=== PATIENT | male | born 1960 | race Caucasian/White ===

== ENCOUNTER 2021-10-15 15:17 | Inpatient (IN) | payer OTHER ==
[~2021-10-15] VITALS: Ht 167.6 cm; Wt 59.9 kg
[~2021-10-15 15:17] MED LIST: Bactrim Ds Tab1 EACH PO; CEPH500 PO; Cleocin HCl150 MG PO; Cleocin HCl300 MG PO; Norco 5-325 Ta1 EACH PO; OXYACE5T PO; SULTRIDS PO; WELLBUTRIN
[2021-10-15 18:56] LABS: BASOPHILS ABSOLUTE AUTO 0.08 K/mm3 (0.00-0.23); BASOPHILS PERCENT AUTO 1 % (0-2); EOSINOPHILS ABSOLUTE AUTO 0.18 K/mm3 (0.00-0.68); EOSINOPHILS PERCENT AUTO 2 % (0-6); Hematocrit 39.8 % (37.0-53.0); Hemoglobin 14.5 g/dL (13.5-17.5); IMMATURE GRAN ABSOLUTE AUTO 0.06 K/mm3 (0.00-0.10); IMMATURE GRAN PERCENT AUTO 1 % (0-1); LYMPHOCYTES PERCENT AUTO 24 % (21-46); MONOCYTES PERCENT AUTO 12 % (4-13); Mean Corpuscular HGB 31.9 pg (26.0-34.0); Mean Corpuscular HGB Conc 36.4 g/dL (31.5-36.5); Mean Corpuscular Volume 88 fL (80-100); Mean Platelet Volume 8.5 fL (9.1-12.4); NEUTROPHILS ABSOLUTE AUTO 5.11 K/mm3 (1.96-9.15); NEUTROPHILS PERCENT AUTO 61 % (41-73); Platelet Count 366 K/mm3 (150-400); RDW Standard Deviation 44.4 fL (35.1-46.3); Red Blood Cell Count 4.55 M/mm3 (4.30-5.90); White Blood Cell Count 8.43 K/mm3 (4.00-11.30)
[2021-10-15 19:29] LABS: Alanine Aminotransfer (ALT/SGP 47 U/L (12-78); Albumin/Globulin Ratio 0.7 (0.8-1.8); Alk Phos 110 U/L (50-136); Anion Gap 5 mmol/L (6-16); Aspartate Aminotrans (AST/SGOT 34 U/L (12-37); Bilirubin, Total 0.4 mg/dL (0.1-1.0); Blood Urea Nitrogen 15 mg/dL (8-24); Bun/Creatinine Ratio 22.3 (12.0-20.0); CO2, Blood 26 mmol/L (21-32); Calcium, Blood 8.7 mg/dL (8.5-10.1); Chloride, Blood 104 mmol/L (98-108); Creatinine, Blood 0.67 mg/dL (0.60-1.20); Globulin, Blood 4.5 g/dL (2.2-4.0); Glomerular Filtration Rate >60 (60-); Glucose, Blood 101 mg/dL (70-99); Potassium, Blood 3.7 mmol/L (3.5-5.5); Sodium, Blood 135 mmol/L (136-145); Total Protein, Blood 7.5 g/dL (6.4-8.2)
[2021-10-15 20:00] LABS: Influenza A, PCR NEGATIVE (NEGATIVE); Influenza B, PCR NEGATIVE (NEGATIVE); Resp Syncytial Virus, PCR NEGATIVE (NEGATIVE); SARS-Cov-2 (COVID-19) PCR, MMC NEGATIVE (NEGATIVE)
[2021-10-16 06:00] LABS: BASOPHILS ABSOLUTE AUTO 0.08 K/mm3 (0.00-0.23); BASOPHILS PERCENT AUTO 1 % (0-2); EOSINOPHILS ABSOLUTE AUTO 0.23 K/mm3 (0.00-0.68); EOSINOPHILS PERCENT AUTO 3 % (0-6); Hematocrit 40.6 % (37.0-53.0); Hemoglobin 14.4 g/dL (13.5-17.5); IMMATURE GRAN ABSOLUTE AUTO 0.05 K/mm3 (0.00-0.10); IMMATURE GRAN PERCENT AUTO 1 % (0-1); LYMPHOCYTES ABSOLUTE AUTO 1.94 K/mm3 (0.84-5.20); LYMPHOCYTES PERCENT AUTO 24 % (21-46); MONOCYTES ABSOLUTE AUTO 0.86 K/mm3 (0.16-1.47); MONOCYTES PERCENT AUTO 11 % (4-13); Mean Corpuscular HGB 31.9 pg (26.0-34.0); Mean Corpuscular HGB Conc 35.5 g/dL (31.5-36.5); Mean Corpuscular Volume 90 fL (80-100); Mean Platelet Volume 8.7 fL (9.1-12.4); NEUTROPHILS ABSOLUTE AUTO 5.05 K/mm3 (1.96-9.15); NEUTROPHILS PERCENT AUTO 62 % (41-73); Platelet Count 363 K/mm3 (150-400); RDW Coefficient Variation 14.1 % (11.7-14.2); RDW Standard Deviation 45.8 fL (35.1-46.3); Red Blood Cell Count 4.52 M/mm3 (4.30-5.90); White Blood Cell Count 8.21 K/mm3 (4.00-11.30)
[2021-10-16 06:37] LABS: Alanine Aminotransfer (ALT/SGP 48 U/L (12-78); Albumin, Blood 2.9 g/dL (3.4-5.0); Albumin/Globulin Ratio 0.8 (0.8-1.8); Alk Phos 107 U/L (50-136); Anion Gap 8 mmol/L (6-16); Aspartate Aminotrans (AST/SGOT 36 U/L (12-37); Bilirubin, Total 0.4 mg/dL (0.1-1.0); Blood Urea Nitrogen 18 mg/dL (8-24); Bun/Creatinine Ratio 22.6 (12.0-20.0); CO2, Blood 27 mmol/L (21-32); Calcium, Blood 8.7 mg/dL (8.5-10.1); Chloride, Blood 105 mmol/L (98-108); Globulin, Blood 3.6 g/dL (2.2-4.0); Glomerular Filtration Rate >60 (60-); Glucose, Blood 88 mg/dL (70-99); Potassium, Blood 4.4 mmol/L (3.5-5.5); Sodium, Blood 140 mmol/L (136-145); Total Protein, Blood 6.5 g/dL (6.4-8.2)
--- NOTE | 2021-10-16 06:42 | NUR ---
SHIFT SUMMARY PT WAS A NEW ADMIT DURING THE NIGHT, ARRIVING ON THE FLOOR AT 2350. HE WAS ADMITTED FOR L INDEX FINGER CELLULITIS. PT IS HOMELESS, AND UNABLE TO STAY [place] [facility] R/T HX OF ANTI-SOCIAL PERSONALITY DISORDER. A&O X 4, PLEASANT AND COOPERATIVE WITH CARE, INDENDENT IN THE ROOM. PT HAD SHOWER AFTER ADMIT, L INDEX FINGER WRAPPED WITH NONADHESIVE AND GAUZE. MEDICATED FOR FINGER PAIN WITH PRN FENTANYL. NO C/O NAUSEA OR SOB. VITAL SIGNS STABLE. NPO SINCE MIDNIGHT IN PREP FOR POSSIBLE SURGERY. RECEIVING NS @ 75 ML/HR. NO OTHER ACUTE CHANGES IN PT CONDITION NOTED SINCE ADMIT. WILL CONTINUE TO MONITOR AND TREAT PER EMAR UNTIL HAND OFF TO DAY SHIFT RN.
--- NOTE | 2021-10-16 18:19 | NUR ---
SHIFT SUMMARY PT A&Ox3, UNSURE OF DATE/PRESIDENT. PT RESTING IN BED, UNSTEADY GAIT WHILE STANDING AT SIDE OF BED, USING URINAL AT BEDSIDE. PT DENIES PAIN, CHEST PAIN, SOB, NAUSEA AND DIZZINESS T/O SHIFT. DR MAGAÑA AT BEDSIDE DURING SHIFT, DRESSING CHANGES AT APPROX 1130; PLANS FOR BID DRESSING CHANGES PER ORDER. PT RECEIVING IV ANTIBITOICS. VSS. NO OTHER ACUTE CHANGES NOTED DURING SHIFT. WILL CONTINUE TO MONITOR UNTIL REPORT GIVEN TO ONCOMING RN.
[2021-10-16 21:07] LABS: Vancomycin, Trough 15.5 ug/mL (5.0-10.0)
--- NOTE | 2021-10-17 04:59 | NUR ---
SHIFT SUMMARY 61 YR m ADMITTED ON 10/15/21 FOR LEFT INDEX FINGER CELLULITIS. FULL CODE. FINGER TIP HAS A BAD WOUND THAT IS INFECTED AND THE FINGERNAIL HAS FALLEN OFF. WOUND CARE TODAY INCLUDED CLEANSING OF WOUND AND DRESSING CHANGE. PUS WAS PRESENT ON THE WOUND. ON THIS SHIFT THE PT REQUESTED THAT HIS BED ALARM BE TURNED OFF HE INSISTED HE WAS NOT A FALL RISK. aFTER CONFERING WITH THE CHARGE NURSE IT WAS REALIZED THAT HIS SWAN SCORE WAS 20 AND HIS BED ALARM WAS TURNED OFF. PT IS HOMELESS AND HAS A HX OF HEP C.
[2021-10-17 05:00] LABS: Hematocrit 43.5 % (37.0-53.0); Hemoglobin 15.5 g/dL (13.5-17.5); Mean Corpuscular HGB 31.9 pg (26.0-34.0); Mean Corpuscular HGB Conc 35.6 g/dL (31.5-36.5); Mean Corpuscular Volume 90 fL (80-100); Mean Platelet Volume 8.2 fL (9.1-12.4); Platelet Count 330 K/mm3 (150-400); RDW Standard Deviation 45.6 fL (35.1-46.3); Red Blood Cell Count 4.86 M/mm3 (4.30-5.90); White Blood Cell Count 7.17 K/mm3 (4.00-11.30)
--- NOTE | 2021-10-17 18:31 | NUR ---
SHIFT SUMMARY NO ACUTE CHANGES THIS SHIFT. PT A/O X3 AND WITHDRAWN BUT PLEASANT. RECEIVING IV ANTIBIOTICS AND NO C/O PAIN. BEEN SLEEPING FOR THE MAJORITY OF THE SHIFT. ORTHOPEDICS TO FOLLOW PT. DRESSING CHANGED ON FINGER. PHOTOS OF WOUND IN CHART. VSS. WILL REPORT TO ORQUIDEA LOREDO.
[2021-10-17 21:43] LABS: Vancomycin, Trough 19.8 ug/mL (5.0-10.0)
--- NOTE | 2021-10-18 04:53 | NUR ---
SHIFT SUMMARY 61 YR M ADMITTED ON 10/15/21 FOR CELLULITIS OF THE L INDEX FINGER. FULL CODE. PT HAS BEEN ON ABX FOR SEVERAL DAYS BUT HIS FINGER DOES NOT LOOK BETTER. DRESSING IS CLEAN, DRY, AND INTACT. PT IS FRIENDLY AND COOPERATIVE. HE IS HOMELESS AND SHOULD BE WORKING WITH CASE MANAGEMENT REGARDING DISCHARGE.
--- NOTE | 2021-10-18 08:00 | NUR ---
PT PLEASANT COOP TALKATIVE. FIXATED ON FOOD. STATES IS HOMELESS. HAIR AND BLANCO IS A MESS, OFFERED TO CUT, REFUSED. H/R REG, NO ;MURDANNY NOTED. NO TELE. LUNGS CLEAR, RESP EASY, UNLABORED. ON R.A. BT X4 LAST BM YEST PER PT. DID AGREE TO TAKE SHHOWER TODAY. INDEPENDANT ON ROOM. BED IN LOW POSITION, CALL LITE IN REACH, CALLS APROP
--- NOTE | 2021-10-18 17:48 | NUR ---
PT HAS BEEN QUITE PLEASANT AND APPRECIATIVE OF CARE TODAY. DRESSING CHANGE PERFORMED PER DR ORDERS BY MYSELF. NO PAIN MEDS REQUESTED. REGULARLY REQUESTS MORE FOOD. AMBULATES SELF TO BATHROOM INDEPENDANTLY. NO NEW CONCERNS NOTED. BED IN LOW POSITION, CALL LITE IN REACH, CALLS APPROP
--- NOTE | 2021-10-19 01:26 | NUR ---
0100: DRESSING CHANGED. IV ABX GIVEN AND TYLENOL FOR PAIN. PT REPORTS SEVERE PAIN DURING DRESSING CHANGED.
--- NOTE | 2021-10-19 03:29 | NUR ---
SHIFT SUMMARY NO ACUTE CHANGES OVERNIGHT. VSS. L INDEX FINGER WAS CLEANED AND DRESSING WAS CHANGED THIS MORNING. PT REPORTS THROBBING PAIN 8/10 WHILE DRESSING WAS BEING CHANGED. MEDICATED WITH TYLENOL X1. PAIN IMPROVED. PT AMBUALTES IND. TOLERATING PO INTAKE, FREQUENT SNACK REQUEST. DENIES N/V. IV ABX GIVEN OVERNIGHT. PT ALSO EXPRESSED THINKING ABOUT GETTING HIS L INDEX FINGER AMPUTATED. I TOLD PT THAT I WILL NOTIFY HIS NURSE THIS MORNING TO ADDRESS AND TO DISCUSS THIS TO THE PROVIDER. CALL LIGHT WITHIN REACH. WILL PROVIDE REPORT TO ONCOMING NURSE.
[2021-10-19 05:14] LABS: Hematocrit 43.4 % (37.0-53.0); Hemoglobin 15.3 g/dL (13.5-17.5); Mean Corpuscular HGB 31.6 pg (26.0-34.0); Mean Corpuscular HGB Conc 35.3 g/dL (31.5-36.5); Mean Corpuscular Volume 90 fL (80-100); Mean Platelet Volume 8.5 fL (9.1-12.4); Platelet Count 324 K/mm3 (150-400); RDW Coefficient Variation 13.7 % (11.7-14.2); RDW Standard Deviation 44.6 fL (35.1-46.3); Red Blood Cell Count 4.84 M/mm3 (4.30-5.90); White Blood Cell Count 8.18 K/mm3 (4.00-11.30)
[2021-10-19 06:01] LABS: Albumin, Blood 2.8 g/dL (3.4-5.0); Anion Gap 7 mmol/L (6-16); Blood Urea Nitrogen 30 mg/dL (8-24); Bun/Creatinine Ratio 43.6 (12.0-20.0); CO2, Blood 27 mmol/L (21-32); Calcium, Blood 8.5 mg/dL (8.5-10.1); Chloride, Blood 103 mmol/L (98-108); Creatinine, Blood 0.69 mg/dL (0.60-1.20); Glomerular Filtration Rate >60 (60-); Glucose, Blood 102 mg/dL (70-99); Phosphorus, Blood 3.8 mg/dL (2.5-4.9); Potassium, Blood 4.5 mmol/L (3.5-5.5); Sodium, Blood 137 mmol/L (136-145)
--- NOTE | 2021-10-19 08:00 | NUR ---
PT PLEASANT COOP A/O X3 STATES NO PAIN THIS AM. FINGER WRAPPED FROM LAST NITE/THIS AM CHANGE. NO BLEEDING NOTED. STATES MAY CONSIDER HAVING TIP FINGER REMOVED NOW. H/R REG, NO MURMER NOTED. NO TELE. LUNGS CLEAR, RESP EASY, UNLABORED. ON R.A. BT X4 LAST BM FEW DAYS. STATES IS NORMAL FOR HIM. REFUSED ANY BOWEL CARE. VOIDS PER BATHROOM, INDEPENDANT IN ROOM. BED IN LOW POSITION, CALL LITE IN REACH, CALLS APROP
--- NOTE | 2021-10-19 19:05 | NUR ---
DR SLOAN IN TO SEE PT THIS AFT. REVIEWED FINGER. MADE NPO MIDNITE FOR SURG IN AM TO REMOVE FINGER. PT CONTINUES TO BE PLEASANT AND COOP, NO C/O PAIN. REFERRALS TO CARE TRAVEL CONSULTANT, CAB STARTER, AND SPIRITUAL CARE TO SEE WHAT ASSISTANCE CAN BE MADE AVAIL TO THIS HOMELESS PT. NO OTHER CONCERNS NOTED. BED IN LOW POSITION, CALL LITE IN REACH, CALLS APPROP
--- NOTE | 2021-10-20 06:15 | NUR ---
SHIFT SUMMARY NO ACUTE CHANGES TO PT CONDITION THIS SHIFT. PT GIVEN UNASYN AND VANCO PER EMAR. PT GIVEN TYLENOL FOR DUMONT AROUND 0500. PT SLEEPING THROUGHOUT THE SHIFT. CALL LIGHT WITHIN REACH. WILL CONTINUE TO MONITOR.
--- NOTE | 2021-10-20 18:42 | NUR ---
SHIFT SUMMARY PT A/O X3; PLEASANT AND COOPERATIVE WITH CARE. PT'S PROCEDURE POSTPONED UNTIL TOMORROW AFTERNOON. PT IS TO HAVE THE TIP OF HIS L INDEX FINGER AMPUTATED AT AROUND [address] BERGERON. NPO AT MIDNIGHT. LOVENOX TO BE HELD. DRESSING CHANGED TO FINGER TODAY. GAUZE DRESSING CDI. VSS. WILL REPORT TO ORQUIDEA LOREDO.
--- NOTE | 2021-10-21 07:25 | NUR ---
SHARA WAS ABLE TO FALL RIGHT BACK TO SLEEP AFTER EACH NEW ANTIBIOTIC DOSE. NO COMPLAINTS OF PAIN OR DISCOMFORT. LEFT INDEX FINGER DRESSING HAD SMALL SPOT OF DRY BLOOD, BUT WAS OTHERWISE INTACT. PATIENT LOOKING FORWARD TO SURGERY THIS MORNING. HE IS CONCERNED HOWEVER, THAT THE TIPS OF THE REST OF HIS FINGERS MAY HAVE IT TOO. NPO SINCE MIDNIGHT
--- NOTE | 2021-10-21 07:28 | NUR ---
After receiving a anonymous information about a used backpack being donated to the patient, I visit patient to see if this would a beneficial item. Patient is quit sleepy but indicates that this would be greatly appreciated. I let patient return to resting and confirm to sources that the backpack is welcomed.
[2021-10-21 13:36] LABS: Vancomycin, Trough 15.5 ug/mL (5.0-10.0)
--- NOTE | 2021-10-21 15:17 | NUR ---
Ambulatory in Day SurgeryLungs clear T/O to Auscultation. History, Chart, Medications and Allergies reviewed before start of procedure.Patient states colon prep results clear. Patient confirms NPO status and agrees with scheduled surgery. Pre-Op teaching done. Pt verbalizes understanding.
--- NOTE | 2021-10-21 18:33 | NUR ---
POST OP RETURN PATIENT RETURNED FROM SURGERY AT 1630. BED SIDE REPORT WAS TAKEN FROM SURGICAL NURSE. VITALS WERE TAKEN AND WNL. PATIENT WAS PROVIDED WITH SODA AND CRACKERS WHICH HE TOLERATED WELL. PATIENT HAS NO COMPLAINTS OF PAIN. HE IS ALERT AND ORIENTATED BUT GROGGY. WE WILL MONITOR.
--- NOTE | 2021-10-21 18:36 | NUR ---
PATIENT WAS ANXIOUSLY WAITING SURGERY THIS AM. HE HE WAS IN GOOD SPIRITS WITH LITTLE COMOPLAINTS. HE DID SAY THAT HIS HAND (BEFORE SURGERY) HAD PAIN 04/10/ HE WAS ALERT ORIENTATED COOPERATIVE.
--- NOTE | 2021-10-21 18:49 | NUR ---
BECAUSE OF SURGERY, PATIENTS 1500 DOSE OF IV UNASYN WAS GIVEN AT 1730. THE PHARMACY DIRECTED US TO GIVE THE 1500 UNASYN AT THAT TIME AND THEN TO HAVE THE 2100 BAG ADMINISTERED AT 2200. WILL REPORT TO LATE SHIFT.
--- NOTE | 2021-10-22 05:02 | NUR ---
SHIFT SUMMARY PT HAD PART OF L INDEX FINGER AMPUTATED YESTERDAY AFTERNOON. PT MEDICATED WITH FENTANYL FOR PAIN. PT BUMPED FINGER WHILE SLEEPING, CAUSING HIM TREMENDOUS PAIN. PT MEDICATED AGAIN AT THAT TIME. PT TRYING TO SLEEP OFF AND ON. PT HAS GOOD APPETITE THIS SHIFT. COOPERATIVE WITH CARE AND APPRECIATIVE FOR CARE. PT CONTINUES ON ANTIBIOTICS. CALL LIGHT WITHIN REACH. WILL CONTINUE TO MONITOR.
[2021-10-22 08:04] LABS: Hematocrit 37.3 % (37.0-53.0); Hemoglobin 13.2 g/dL (13.5-17.5); Mean Corpuscular HGB 31.8 pg (26.0-34.0); Mean Corpuscular HGB Conc 35.4 g/dL (31.5-36.5); Mean Corpuscular Volume 90 fL (80-100); Mean Platelet Volume 8.9 fL (9.1-12.4); Platelet Count 256 K/mm3 (150-400); RDW Coefficient Variation 13.5 % (11.7-14.2); RDW Standard Deviation 44.4 fL (35.1-46.3); Red Blood Cell Count 4.15 M/mm3 (4.30-5.90); White Blood Cell Count 17.89 K/mm3 (4.00-11.30)
--- NOTE | 2021-10-22 08:36 | NUR ---
TALKED TO ABOUT PAIN MEDS NOT HELPING. TO ADJUST MEDS
[2021-10-22 08:49] LABS: Albumin, Blood 2.8 g/dL (3.4-5.0); Anion Gap 7 mmol/L (6-16); Blood Urea Nitrogen 23 mg/dL (8-24); CO2, Blood 27 mmol/L (21-32); Calcium, Blood 8.1 mg/dL (8.5-10.1); Chloride, Blood 106 mmol/L (98-108); Glomerular Filtration Rate >60 (60-); Glucose, Blood 174 mg/dL (70-99); Phosphorus, Blood 3.4 mg/dL (2.5-4.9); Potassium, Blood 4.1 mmol/L (3.5-5.5); Sodium, Blood 140 mmol/L (136-145)
--- NOTE | 2021-10-22 15:48 | NUR ---
ALERT. ORIENTED. TAKES DRESSING OFF AND PUTS BACK ON MULTIPLE TIMES. ADVISED TO LEAVE IN PLACE. PATIENT WISHES TO LEAVE TODAY. AWAITING SURGEON. FENTANYL NOT WORKING FOR PATIENT PER PATIENT. PAIN MEDS CHANGED AND APPEAR TO BE WORKING. PATIENT ABLE TO SLEEP. IV PATENT. UNLABORED RESPIRATIONS. WCTM
[2021-10-23 04:24] LABS: Hematocrit 38.2 % (37.0-53.0); Hemoglobin 13.5 g/dL (13.5-17.5); Mean Corpuscular HGB 31.8 pg (26.0-34.0); Mean Corpuscular HGB Conc 35.3 g/dL (31.5-36.5); Mean Corpuscular Volume 90 fL (80-100); Mean Platelet Volume 8.6 fL (9.1-12.4); Platelet Count 230 K/mm3 (150-400); RDW Coefficient Variation 13.6 % (11.7-14.2); RDW Standard Deviation 44.5 fL (35.1-46.3); Red Blood Cell Count 4.25 M/mm3 (4.30-5.90); White Blood Cell Count 10.15 K/mm3 (4.00-11.30)
--- NOTE | 2021-10-23 06:01 | NUR ---
SHIFT SUMMARY: PATIENT IS A&OX4, LOW GRADE TEMP. OBSERVED. NOW WNL WITH ADMINISTRATION OF TORADOL WHICH ALSO IS CONTROLING PAIN WELL. DR THOMAS WAS IN TO EVALUATE PATIENT. OBSERVED THE PATIENT HAS BEEN REMOVING DRSG. DR THOMAS REINFORCED DRSG WITH COBAN AND PATIENT HAS LEFT THIS IN PLACE THROUGH THE NIGHT.
[2021-10-23] MEDS ORDERED: ACET500 PO (10:53)
[2021-10-23] MEDS ORDERED: LACT PO (10:53)
[2021-10-23] MEDS ORDERED: AMOCLA875 PO (10:54)
[2021-10-23] MEDS ORDERED: IBUP400 PO (10:54)
--- NOTE | 2021-10-23 11:39 | NUR ---
REVIEWED D'C INSTRUCTIONS. GIVEN ; XEROFORM, 4X4, SMALL KERLIX AND COBAN FOR DRESSING CHANGES WHICH SHOULD LAST AT LEAST A WEEK TO 10 DAYS. AWARE OF HOW TO CHANGE AND WHAT TO LOOK FOR FOR SIGNS OF INFECTION. GIVEN NUMBERS FOR PCP AND ORTHO MD AND AWARE TO CALL AND MAKE APPPOINTMENT FOR NEXT WEEK AND IN 2 WEEKS RESPECTIVELY.AWARE CAN RETURN TO E.R. IF ANY PROBLEMS. ANSWER ALL QUESTIONS. VERBALIZES UNDERSTANDING. KNOWS TO KEEP WOUND CLEAN AND DRY. REVIEW MEDS THAT ARE AT [facility]. BROTHER HERE TO SAUSAGE COOKER. IN WC TO POV .
== END 2021-10-23 11:55 | disposition home or self-care (01) | DRG 514 ==
LOC: ER 15:17 → MEDS 15:18 → ERHOLD 15:18 → MEDS 23:50
PROVIDERS: Emergency Medicine; Internal Medicine; Orthopaedic Surgery; Physician Assistant; ADMIT Internal Medicine
PROC: 0X6P0Z2 Detachment at Left Index Finger, Mid, Open Approach (ICD-10-PCS; principal; 2021-10-21 13:00)
DX: M86.141 Other acute osteomyelitis, right hand (principal); M86.8X4 Other osteomyelitis, hand; Z20.822 Contact with and (suspected) exposure to COVID-19; S61.201A Unspecified open wound of left index finger without damage to nail, initial encounter; L03.012 Cellulitis of left finger; F60.2 Antisocial personality disorder; F17.210 Nicotine dependence, cigarettes, uncomplicated; L98.499 Non-pressure chronic ulcer of skin of other sites with unspecified severity; Z59.02 Unsheltered homelessness; B18.2 Chronic viral hepatitis C
CPT/HCPCS: 0241U; 36415; 73140; 76882; 80053; 80069; 80202; 85025; 85027; 85651; 86140; 87070; 87075; 87077; 87147; 87186; 87205; 88305; 88311; 90471; 90714; 96365; 96366; 96367; 96372; 96376; 99285-25; A9270; G0378; J0295; J1100; J1650; J1885; J2250; J2405; J2543; J2704; J3010; J3370; J7030; J7050; J7120

== ENCOUNTER 2022-04-07 13:14 | Inpatient (IN) | payer OTHER ==
[~2022-04-07] VITALS: Ht 180.3 cm; Wt 61.7 kg
[~2022-04-07 13:14] MED LIST changes: +ACET500 PO; +AMOCLA875 PO; +IBUP400 PO; +LACT PO
[2022-04-07 14:55] LABS: Influenza A, PCR NEGATIVE (NEGATIVE); Influenza B, PCR NEGATIVE (NEGATIVE); Resp Syncytial Virus, PCR NEGATIVE (NEGATIVE); SARS-Cov-2 (COVID-19) PCR, MMC NEGATIVE (NEGATIVE)
[2022-04-07 15:31] LABS: Albumin/Globulin Ratio 0.5 (0.8-1.8); Calcium, Blood 8.6 mg/dL (8.5-10.1); Creatinine, Blood 0.63 mg/dL (0.60-1.20); Globulin, Blood 4.3 g/dL (2.2-4.0); Potassium, Blood 3.2 mmol/L (3.5-5.5); Total Protein, Blood 6.3 g/dL (6.4-8.2)
[2022-04-07 16:05] LABS: Hematocrit 36.6 % (37.0-53.0); Hemoglobin 13.6 g/dL (13.5-17.5); Mean Corpuscular HGB 31.5 pg (26.0-34.0); Mean Corpuscular HGB Conc 37.2 g/dL (31.5-36.5); Mean Corpuscular Volume 85 fL (80-100); Mean Platelet Volume 10.2 fL (9.1-12.4); Platelet Count 184 K/mm3 (150-400); RDW Coefficient Variation 12.9 % (11.7-14.2); RDW Standard Deviation 39.8 fL (35.1-46.3); Red Blood Cell Count 4.32 M/mm3 (4.30-5.90); White Blood Cell Count 10.02 K/mm3 (4.00-11.30)
[2022-04-07 17:48] LABS: BAND PERCENT MAN 38 % (0-8); BASOPHILS PERCENT MAN 0 % (0-2); EOSINOPHILS PERCENT MAN 0 % (0-6); LYMPHOCYTES % ATYPICAL MANUAL 1 % (0-0); LYMPHOCYTES PERCENT MAN 13 % (21-46); METAMYELOCYTE PERCENT MAN 2 % (0-0); MONOCYTES PERCENT MAN 4 % (4-13); MYELOCYTE PERCENT MAN 2 % (0-0); NEUTROPHILS ABSOLUTE MAN 7.81 K/mm3 (1.96-9.15); SEG NEUTROPHILS PERCENT MAN 40 % (41-73); TOTAL CELLS COUNTED 100
[2022-04-08 01:37] LABS: Hematocrit 33.3 % (37.0-53.0); Hemoglobin 12.4 g/dL (13.5-17.5); Mean Corpuscular HGB 31.5 pg (26.0-34.0); Mean Corpuscular HGB Conc 37.2 g/dL (31.5-36.5); Mean Corpuscular Volume 85 fL (80-100); Mean Platelet Volume 9.3 fL (9.1-12.4); Platelet Count 196 K/mm3 (150-400); RDW Coefficient Variation 12.9 % (11.7-14.2); RDW Standard Deviation 39.5 fL (35.1-46.3); Red Blood Cell Count 3.94 M/mm3 (4.30-5.90)
[2022-04-08 01:55] LABS: Albumin, Blood 1.6 g/dL (3.4-5.0); Albumin/Globulin Ratio 0.5 (0.8-1.8); Bilirubin, Total 2.9 mg/dL (0.1-1.0); Bun/Creatinine Ratio 30.1 (12.0-20.0); Calcium, Blood 8.2 mg/dL (8.5-10.1); Creatinine, Blood 0.6 mg/dL (0.60-1.20); Globulin, Blood 3.4 g/dL (2.2-4.0); Potassium, Blood 3.2 mmol/L (3.5-5.5)
[2022-04-08 02:23] LABS: BAND PERCENT MAN 26 % (0-8); BASOPHILS PERCENT MAN 0 % (0-2); EOSINOPHILS ABSOLUTE MAN 0.12 K/mm3 (0.00-0.68); EOSINOPHILS PERCENT MAN 1 % (0-6); LYMPHOCYTES ABSOLUTE MAN 0.84 K/mm3 (0.84-5.20); LYMPHOCYTES PERCENT MAN 7 % (21-46); METAMYELOCYTE ABSOLUTE MAN 0.24 K/mm3 (0.00-0.00); METAMYELOCYTE PERCENT MAN 2 % (0-0); MONOCYTES ABSOLUTE MAN 0.72 K/mm3 (0.16-1.47); MONOCYTES PERCENT MAN 6 % (4-13); MYELOCYTE ABSOLUTE MAN 0.36 K/mm3 (0.00-0.00); MYELOCYTE PERCENT MAN 3 % (0-0); NEUTROPHILS ABSOLUTE MAN 9.72 K/mm3 (1.96-9.15); SEG NEUTROPHILS PERCENT MAN 55 % (41-73); TOTAL CELLS COUNTED 100
--- NOTE | 2022-04-08 05:54 | NUR ---
NEW ADMISSION FROM ER. PT ALERT TO SELF, PLACE AND SITUATION. PT UNSURE OF DATE AND STATES THAT AT BASELINE HE IS AWARE OF TIME. PT NOTED WITH OLD/HEALED RUG BURN TO LOWER BUTTOCKS. FEET ARE CALLOUS AND UNDER TOES WELL. BLACK AREAS NOTED HOWEVER THIS APPEARS TO BE DIRT. CLEANED BEST COULD. PT STATES THAT HE GOES W/O SHOES FOR PERIODS OF TIME AND RECENTLY HAS NOT HAD SHOES FOR 3 DAYS. PT IS HOMELESS AND LOOKS MALNOURISHED. PT GIVEN BED BATH IS TOO WEAK FOR SHOWER AT THIS TIME. LACTIC ACID REDRAW 2.3 AND PER NO NEED TO REDRAW. K 3.2 AND SUPPLEMENTED PER NOV.
--- NOTE | 2022-04-08 16:39 | NUR ---
DAY SHIFT SUMMARY 61 YR OLD MALE WITH LT LOBE PNEUMONIA. INCENTIVE SPIROMETER GIVEN THIS SHIFT WITH PT EDUCATED ON USE. ABX THROUGHOUT SHIFT. PT ON 2L O2 NC, ABLE TO TAKE MEDS WHOLE. PT ON TELE WITH NSR AT 77. A/O TO SELF/PLACE/SITUATION WITH CONFUSION INTERMITTENT. CALL LIGHT WITHIN REACH AND ABLE TO CALL APPROPRIATE.
[2022-04-08 23:16] LABS: Albumin, Blood 1.5 g/dL (3.4-5.0); Anion Gap 6 mmol/L (6-16); Blood Urea Nitrogen 21 mg/dL (8-24); Bun/Creatinine Ratio 34.9 (12.0-20.0); CO2, Blood 27 mmol/L (21-32); Calcium, Blood 9.3 mg/dL (8.5-10.1); Chloride, Blood 103 mmol/L (98-108); Glomerular Filtration Rate 111 (60-); Glucose, Blood 152 mg/dL (70-99); Magnesium, Blood 1.7 mg/dL (1.6-2.4); Phosphorus, Blood 2.3 mg/dL (2.5-4.9); Potassium, Blood 3.4 mmol/L (3.5-5.5); Sodium, Blood 136 mmol/L (136-145)
[2022-04-09 05:28] LABS: Albumin, Blood 1.5 g/dL (3.4-5.0); Albumin/Globulin Ratio 0.4 (0.8-1.8); Bilirubin, Total 1.6 mg/dL (0.1-1.0); Bun/Creatinine Ratio 45.3 (12.0-20.0); Calcium, Blood 8.8 mg/dL (8.5-10.1); Creatinine, Blood 0.46 mg/dL (0.60-1.20); Globulin, Blood 3.8 g/dL (2.2-4.0); Potassium, Blood 3.8 mmol/L (3.5-5.5); Total Protein, Blood 5.3 g/dL (6.4-8.2)
[2022-04-09 06:11] LABS: Hematocrit 33.9 % (37.0-53.0); Hemoglobin 12.7 g/dL (13.5-17.5); Mean Corpuscular HGB 31.6 pg (26.0-34.0); Mean Corpuscular HGB Conc 37.5 g/dL (31.5-36.5); Mean Corpuscular Volume 84 fL (80-100); Mean Platelet Volume 10.4 fL (9.1-12.4); Platelet Count 175 K/mm3 (150-400); RDW Coefficient Variation 13.1 % (11.7-14.2); RDW Standard Deviation 40.1 fL (35.1-46.3); Red Blood Cell Count 4.02 M/mm3 (4.30-5.90); White Blood Cell Count 17.68 K/mm3 (4.00-11.30)
[2022-04-09 06:35] LABS: BAND PERCENT MAN 23 % (0-8); BASOPHILS PERCENT MAN 0 % (0-2); EOSINOPHILS ABSOLUTE MAN 0.17 K/mm3 (0.00-0.68); EOSINOPHILS PERCENT MAN 1 % (0-6); LYMPHOCYTES PERCENT MAN 4 % (21-46); METAMYELOCYTE ABSOLUTE MAN 0.17 K/mm3 (0.00-0.00); METAMYELOCYTE PERCENT MAN 1 % (0-0); MONOCYTES ABSOLUTE MAN 0.35 K/mm3 (0.16-1.47); MONOCYTES PERCENT MAN 2 % (4-13); MYELOCYTE ABSOLUTE MAN 0.17 K/mm3 (0.00-0.00); MYELOCYTE PERCENT MAN 1 % (0-0); NEUTROPHILS ABSOLUTE MAN 16.08 K/mm3 (1.96-9.15); SEG NEUTROPHILS PERCENT MAN 68 % (41-73); TOTAL CELLS COUNTED 100
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
--- NOTE | 2022-04-09 08:00 | NUR ---
pt sitting up in bed eating breakfast a/ox3, can be forgetful, was tearful speaking about his parents, lungs are dim t/o, resp even and unlabored, no cough noted at this time, but has had a cough, on r/a, hrr, tele in place running sr per monitor, see strip, no edema noted ppp+1, cap refill<3sec, vs stable, afebrile, iv site is clear and patent, btx4 abd flat soft nontender, voids without diff, skin c/w/d, maew, kavon, call light in reach.
--- NOTE | 2022-04-09 18:35 | NUR ---
pt had a shower today, states he feels a lot better, sitting up in the chair for about half the day, has an occ cough, no acute changes this shift. call light in reach.
--- NOTE | 2022-04-10 03:46 | NUR ---
PT MEDICATED X2 FOR COUGH. PT REPORTED FEELING CONSTIPATED AND REQUESTING SOMETHING FOR THIS. PER PT HE HAS TAKEN DULCOLAX IN THE PAST AND HAS BEEN EFFECTIVE. PROVIDER NOTIFIED WITH ORDERS. NO NEW C/O AT THIS TIME.
[2022-04-10 05:20] LABS: Hematocrit 33.6 % (37.0-53.0); Hemoglobin 12.6 g/dL (13.5-17.5); Mean Corpuscular HGB 31.3 pg (26.0-34.0); Mean Corpuscular HGB Conc 37.5 g/dL (31.5-36.5); Mean Corpuscular Volume 84 fL (80-100); NRBC ABSOLUTE 0.03 K/mm3 (0.00-0.02); NRBC Auto 0.1 /100 WBC (0.0-0.2); Platelet Count 261 K/mm3 (150-400); RDW Coefficient Variation 12.9 % (11.7-14.2); RDW Standard Deviation 39.3 fL (35.1-46.3); Red Blood Cell Count 4.02 M/mm3 (4.30-5.90); White Blood Cell Count 26.86 K/mm3 (4.00-11.30)
[2022-04-10 05:43] LABS: Albumin, Blood 1.7 g/dL (3.4-5.0); Albumin/Globulin Ratio 0.5 (0.8-1.8); Bilirubin, Total 0.7 mg/dL (0.1-1.0); Bun/Creatinine Ratio 37.3 (12.0-20.0); Calcium, Blood 8.5 mg/dL (8.5-10.1); Creatinine, Blood 0.59 mg/dL (0.60-1.20); Globulin, Blood 3.7 g/dL (2.2-4.0); Magnesium, Blood 1.6 mg/dL (1.6-2.4); Phosphorus, Blood 2.8 mg/dL (2.5-4.9); Potassium, Blood 3.6 mmol/L (3.5-5.5); Total Protein, Blood 5.4 g/dL (6.4-8.2)
[2022-04-10 05:54] LABS: BAND PERCENT MAN 8 % (0-8); BASOPHILS PERCENT MAN 0 % (0-2); EOSINOPHILS PERCENT MAN 0 % (0-6); LYMPHOCYTES ABSOLUTE MAN 2.14 K/mm3 (0.84-5.20); LYMPHOCYTES PERCENT MAN 8 % (21-46); METAMYELOCYTE PERCENT MAN 3 % (0-0); MONOCYTES ABSOLUTE MAN 1.34 K/mm3 (0.16-1.47); MONOCYTES PERCENT MAN 5 % (4-13); MYELOCYTE ABSOLUTE MAN 0.26 K/mm3 (0.00-0.00); MYELOCYTE PERCENT MAN 1 % (0-0); NEUTROPHILS ABSOLUTE MAN 22.29 K/mm3 (1.96-9.15); SEG NEUTROPHILS PERCENT MAN 75 % (41-73); TOTAL CELLS COUNTED 100
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
--- NOTE | 2022-04-10 18:15 | NUR ---
pt had a episode of high anxiety wanting to get fresh air and not breathing the canned air in the hosp, took him out after lunch, and he felt much better after, has been calm and cooperative the rest of the day. states he feels like he is getting slightly better. call light in reach.
--- NOTE | 2022-04-11 05:23 | NUR ---
PT C/O CONSTIPATION, BOWEL CARE REGIMINE ORDERED. PT REQUESTED SUPPOSITORY WITH MOM. PT STATES HE FEELS LIKE THINGS ARE MOVING THIS MORNING. COUGH CONT. TO BE THICK AND TENACIOUS.
[2022-04-11 05:58] LABS: Bun/Creatinine Ratio 37.5 (12.0-20.0); Calcium, Blood 8.2 mg/dL (8.5-10.1); Creatinine, Blood 0.53 mg/dL (0.60-1.20); Potassium, Blood 3.9 mmol/L (3.5-5.5)
--- NOTE | 2022-04-11 17:07 | NUR ---
PATIENT A/OX4 THIS SHIFT, UP INDEPENDENTLY IN ROOM. RA TO 2LO2 TO MAINAIN SATS. WALKED IN HALLS TODAY AND DID HAVE SOME DIZZINESS. SR/SB ON TELE, DENIES ANY CP/PRESSURE. VSS. 20G IV TO L FA WNL AND SL. RECEIVING IV SOLUMEDROL. CALM AND COOPERATIVE WITH CARE, CAN BE WITHDRAWN AT TIMES. CALLS APPROPRIATELY FOR ASSISTANCE. DENIES ANY PAIN OR DISCOMFORT.
[2022-04-12 05:38] LABS: Mean Corpuscular HGB 31.7 pg (26.0-34.0); Mean Corpuscular HGB Conc 36.8 g/dL (31.5-36.5); Mean Corpuscular Volume 86 fL (80-100); Mean Platelet Volume 9.9 fL (9.1-12.4); NRBC ABSOLUTE 0.14 K/mm3 (0.00-0.02); NRBC Auto 0.5 /100 WBC (0.0-0.2); Platelet Count 336 K/mm3 (150-400); RDW Coefficient Variation 13.3 % (11.7-14.2); RDW Standard Deviation 41.3 fL (35.1-46.3); Red Blood Cell Count 4.42 M/mm3 (4.30-5.90)
--- NOTE | 2022-04-12 05:39 | NUR ---
SHIFT SUMMARY PT HAS BEEN ASLEEP MOST OF THE NIGHT. ANY TIME HE IS AWOKEN HE ASKS FOR SNACKS, TO AVOID HIM SKIPPING HIS MEALS DURING DAY SHIFT HE WAS DENIED THEM THIS SHIFT. PT IS ALSO STILL CONCERNED ABOUT NO HAVING A BM. HE WAS MEDICATED PER MAR, BUT WAS STILL UNABLE TO GO AND DENIED THAT HE WOULD LIKE MORE MEDICATED OR PRUNE JUICE. HE WAS ALSO EDUCATED THAT LESS DAIRY AND MORE VEGETABLES WOULD HELP HIM BECOME MORE REGULAR. BED IN LOWEST POSITION AND CALL LIGHT IN REACH.
[2022-04-12 05:50] LABS: Bun/Creatinine Ratio 40.9 (12.0-20.0); Calcium, Blood 8.5 mg/dL (8.5-10.1); Creatinine, Blood 0.56 mg/dL (0.60-1.20); Potassium, Blood 4.2 mmol/L (3.5-5.5)
[2022-04-12 06:05] LABS: BAND PERCENT MAN 2 % (0-8); BASOPHILS PERCENT MAN 0 % (0-2); EOSINOPHILS PERCENT MAN 0 % (0-6); LYMPHOCYTES % ATYPICAL MANUAL 1 % (0-0); LYMPHOCYTES ABSOLUTE MAN 0.29 K/mm3 (0.84-5.20); MONOCYTES ABSOLUTE MAN 0.87 K/mm3 (0.16-1.47); MONOCYTES PERCENT MAN 3 % (4-13); MYELOCYTE ABSOLUTE MAN 0.87 K/mm3 (0.00-0.00); MYELOCYTE PERCENT MAN 3 % (0-0); NEUTROPHILS ABSOLUTE MAN 27.15 K/mm3 (1.96-9.15); SEG NEUTROPHILS PERCENT MAN 91 % (41-73); TOTAL CELLS COUNTED 100
--- NOTE | 2022-04-12 18:10 | NUR ---
PATIENT DID BETTER TODAY WALKING IN HALLS WITH SBA. DOES WELL WITH SHORT WALKS MORE FREQUENTLY. VSS, ON RA. TEARFUL AND ANXIOUS AT TIMES TODAY ABOUT BEING HERE AND WANTING TO LEAVE, CALMS WITH CONVERSATION. COOPERATIVE WITH CARE. DENIES ANY PAIN OR DISCOMFORT. CALLS APPROPRIATELY FOR ASSISTANCE.
--- NOTE | 2022-04-13 00:29 | NUR ---
PT AWAKE WATCHING TV. PT REPORTS A "SOUR STOMACH" - MEDICATED WITH MAALOX. PT REQUESTED SELAM CRACKERS - PROVIDED. CALL LIGHT WITHIN REACH.
--- NOTE | 2022-04-13 04:49 | NUR ---
SHIFT SUMMARY - PT SLEPT FOR APPX 6 HOURS LAST NOC. PT SHOWERED AT THE BEGINNING OF THE SHIFT. PT AMBULATES WITH A WALKER TO BRP INDEPENDENTLY. PT DIDN'T REPORT ANY DIZZINESS OR SOB WITH AMBULATION. PT CONTINUES ON ROOM AIR. PT IS EATING A SNACK AT THIS TIME, DENIES ANY OTHER REQUESTS. PT REPORTS HE IS FEELING BETTER, AND REPORTS HIS BREATHING IS BETTER, ESPECIALLY AFTER HIS SHOWER (REPORTS THE WARM WATER HELPED LOOSEN SECRETIONS). PO FLUIDS AT BEDSIDE. CALL LIGHT WITHIN REACH. BED IN LOW POSITION. WILL CONTINUE TO MONITOR UNTIL AM SHIFT CHANGE.
[2022-04-13 05:41] LABS: Hematocrit 40.1 % (37.0-53.0); Hemoglobin 14.8 g/dL (13.5-17.5); Mean Corpuscular HGB 31.8 pg (26.0-34.0); Mean Corpuscular HGB Conc 36.9 g/dL (31.5-36.5); Mean Corpuscular Volume 86 fL (80-100); Mean Platelet Volume 9.7 fL (9.1-12.4); NRBC ABSOLUTE 0.23 K/mm3 (0.00-0.02); NRBC Auto 0.8 /100 WBC (0.0-0.2); Platelet Count 380 K/mm3 (150-400); RDW Coefficient Variation 13.3 % (11.7-14.2); RDW Standard Deviation 40.5 fL (35.1-46.3); Red Blood Cell Count 4.66 M/mm3 (4.30-5.90); White Blood Cell Count 27.81 K/mm3 (4.00-11.30)
[2022-04-13 05:50] LABS: Calcium, Blood 8.4 mg/dL (8.5-10.1); Creatinine, Blood 0.6 mg/dL (0.60-1.20); Potassium, Blood 3.8 mmol/L (3.5-5.5)
[2022-04-13 06:17] LABS: BAND PERCENT MAN 16 % (0-8); BASOPHILS PERCENT MAN 0 % (0-2); EOSINOPHILS ABSOLUTE MAN 0.55 K/mm3 (0.00-0.68); EOSINOPHILS PERCENT MAN 2 % (0-6); LYMPHOCYTES ABSOLUTE MAN 3.05 K/mm3 (0.84-5.20); LYMPHOCYTES PERCENT MAN 11 % (21-46); MONOCYTES ABSOLUTE MAN 0.83 K/mm3 (0.16-1.47); MONOCYTES PERCENT MAN 3 % (4-13); MYELOCYTE ABSOLUTE MAN 1.39 K/mm3 (0.00-0.00); MYELOCYTE PERCENT MAN 5 % (0-0); NEUTROPHILS ABSOLUTE MAN 21.96 K/mm3 (1.96-9.15); SEG NEUTROPHILS PERCENT MAN 63 % (41-73); TOTAL CELLS COUNTED 100
--- NOTE | 2022-04-13 07:30 | NUR ---
ASSUMED CARE: PT RESTING QUIETLY AT THIS TIME, ON RA. NO ACUTE NEEDS OR CONCERNS IDENTIFIED.
[2022-04-13] MEDS ORDERED: NICO21TP TOP (14:52)
[2022-04-13] MEDS ORDERED: ALBU90OI INH (14:53)
[2022-04-13] MEDS ORDERED: LACT PO (14:53)
[2022-04-13] MEDS ORDERED: PRED20 PO (14:53)
[2022-04-13] MEDS ORDERED: AMOX500 PO (14:54)
[2022-04-13] MEDS ORDERED: FLUT1DIS5 INH (14:54)
--- NOTE | 2022-04-13 15:16 | NUR ---
IV DC'D WNL. PT GIVEN DC INSTRUCTIONS REGARDING MEDICATIONS AND FOLLOW UP APPOINTMENTS. STATES HE HAS A RESOURCE THAT WOULD HELP WITH CALLING DR APPOINTMENTS AND RIDES. DENIES FURTHER QUESTIONS OR CONCERNS.
== END 2022-04-13 15:10 | disposition home or self-care (01) | DRG 871 ==
LOC: ER 13:14 → MEDS 22:57
PROVIDERS: Physician Assistant; Student in an Organized Health Care Education/Training Program; ADMIT Family Medicine
DX: A40.3 Sepsis due to Streptococcus pneumoniae (principal); J18.9 Pneumonia, unspecified organism; R65.20 Severe sepsis without septic shock; E87.1 Hypo-osmolality and hyponatremia; E44.0 Moderate protein-calorie malnutrition; I47.2 Ventricular tachycardia; J44.0 Chronic obstructive pulmonary disease with (acute) lower respiratory infection; J44.1 Chronic obstructive pulmonary disease with (acute) exacerbation; E87.2 Acidosis; R64 Cachexia; Z20.822 Contact with and (suspected) exposure to COVID-19; Z59.02 Unsheltered homelessness; E86.1 Hypovolemia; K59.00 Constipation, unspecified; B18.2 Chronic viral hepatitis C; E87.6 Hypokalemia; R41.3 Other amnesia; F15.10 Other stimulant abuse, uncomplicated; F17.210 Nicotine dependence, cigarettes, uncomplicated; F60.2 Antisocial personality disorder; Z68.23 Body mass index [BMI] 23.0-23.9, adult; Z89.022 Acquired absence of left finger(s)
CPT/HCPCS: 0241U; 36415; 71045; 80048; 80053; 80069; 83605; 83735; 84100; 84443; 84484; 85025; 87040; 87070; 87186; 87205; 93005; 93010; 93306; 94640; 94664; 94760; 96365; 96367; 96375; 97116; 97162; 97530; 99285-25; A9270; C9113; J0456; J0696; J1650; J1885; J2405; J2930; J3475; J7030; J7050; J7060; J7120; J7512

== ENCOUNTER 2023-02-02 14:06 | Emergency (ER) | payer OTHER ==
[~2023-02-02] VITALS: Ht 172.7 cm; Wt 59.0 kg
[~2023-02-02 14:06] MED LIST changes: +ALBU90OI INH; +AMOX500 PO; +FLUT1DIS5 INH; +GUAI600T33 PO; +NICO21TP TOP; +PRED20 PO; +Tessalon200 MG PO
[2023-02-02 14:37] VITALS: BP 104/67
[2023-02-02 15:08] LABS: BASOPHILS ABSOLUTE AUTO 0.12 K/mm3 (0.00-0.23); BASOPHILS PERCENT AUTO 1 % (0-2); EOSINOPHILS ABSOLUTE AUTO 0.24 K/mm3 (0.00-0.68); EOSINOPHILS PERCENT AUTO 2 % (0-6); Hematocrit 49.6 % (37.0-53.0); Hemoglobin 17.9 g/dL (13.5-17.5); IMMATURE GRAN ABSOLUTE AUTO 0.03 K/mm3 (0.00-0.10); IMMATURE GRAN PERCENT AUTO 0 % (0-1); LYMPHOCYTES ABSOLUTE AUTO 2.64 K/mm3 (0.84-5.20); LYMPHOCYTES PERCENT AUTO 26 % (21-46); MONOCYTES ABSOLUTE AUTO 1.08 K/mm3 (0.16-1.47); MONOCYTES PERCENT AUTO 11 % (4-13); Mean Corpuscular HGB 31.1 pg (26.0-34.0); Mean Corpuscular HGB Conc 36.1 g/dL (31.5-36.5); Mean Corpuscular Volume 86 fL (80-100); Mean Platelet Volume 8.5 fL (9.1-12.4); NEUTROPHILS ABSOLUTE AUTO 5.92 K/mm3 (1.96-9.15); NEUTROPHILS PERCENT AUTO 59 % (41-73); Platelet Count 347 K/mm3 (150-400); RDW Coefficient Variation 13.2 % (11.7-14.2); RDW Standard Deviation 41.2 fL (35.1-46.3); Red Blood Cell Count 5.75 M/mm3 (4.30-5.90); White Blood Cell Count 10.03 K/mm3 (4.00-11.30)
[2023-02-02 15:29] LABS: Albumin, Blood 3.8 g/dL (3.4-5.0); Albumin/Globulin Ratio 0.9 (0.8-1.8); Bilirubin, Total 0.4 mg/dL (0.1-1.0); Bun/Creatinine Ratio 31.3 (12.0-20.0); Calcium, Blood 9.4 mg/dL (8.5-10.1); Creatinine, Blood 0.74 mg/dL (0.60-1.20); Globulin, Blood 4.2 g/dL (2.2-4.0)
[2023-02-02 17:04] LABS: Source, Urine Clean Catch
[2023-02-02 17:10] LABS: Appearance, Urine Clear (Clear); Bilirubin, Urine Neg (Neg); Blood, Urine Neg (Neg); Color, Urine Yellow (P-Yellow); Glucose Qualitative, Urine Neg (Neg); Ketones, Urine Neg (Neg); Leukocyte Esterase, Urine Neg (Neg); Nitrite, Urine Neg (Neg); Protein, Urine 1+ (Neg); Specific Gravity, Urine 1.025 (1.003-1.022); Urobilinogen, Urine 1+ (Normal)
[2023-02-02] MEDS ORDERED: METPRE4DP PO (18:20)
[2023-02-02] MEDS ORDERED: OXYC5 PO (18:20)
== END 2023-02-02 18:35 | disposition home or self-care (01) ==
LOC: ER 14:06
PROVIDERS: Physician Assistant
DX: M54.17 Radiculopathy, lumbosacral region (principal); F17.210 Nicotine dependence, cigarettes, uncomplicated; Z79.899 Other long term (current) drug therapy
CPT/HCPCS: 80053; 85025; 96374; 96375; 99284-25; A9270; J1100; J1885

== ENCOUNTER 2023-05-20 14:07 | Emergency (ER) | payer OTHER ==
[~2023-05-20] VITALS: Ht 175.3 cm; Wt 68.0 kg
[~2023-05-20 14:07] MED LIST changes: +METPRE4DP PO; +OXYC5 PO
[2023-05-20 14:08] VITALS: BP 134/77
== END 2023-05-20 16:24 | disposition home or self-care (01) ==
LOC: ER 14:07
DX: S93.401A Sprain of unspecified ligament of right ankle, initial encounter (principal); W01.10XA Fall on same level from slipping, tripping and stumbling with subsequent striking against unspecified object, initial encounter; Z79.899 Other long term (current) drug therapy; Z79.52 Long term (current) use of systemic steroids; F17.200 Nicotine dependence, unspecified, uncomplicated; Z59.00 Homelessness unspecified
CPT/HCPCS: 73610; 99283-25

== ENCOUNTER 2023-08-17 03:30 | Inpatient (IN) | payer OTHER ==
[~2023-08-17] VITALS: Ht 160 cm; Wt 51.8 kg
[2023-08-17 04:04] LABS: BASOPHILS ABSOLUTE AUTO 0.14 K/mm3 (0.00-0.23); BASOPHILS PERCENT AUTO 1 % (0-2); EOSINOPHILS ABSOLUTE AUTO 0.32 K/mm3 (0.00-0.68); EOSINOPHILS PERCENT AUTO 2 % (0-6); Hematocrit 40.6 % (37.0-53.0); Hemoglobin 14.2 g/dL (13.5-17.5); IMMATURE GRAN ABSOLUTE AUTO 0.58 K/mm3 (0.00-0.10); IMMATURE GRAN PERCENT AUTO 4 % (0-1); LYMPHOCYTES ABSOLUTE AUTO 1.77 K/mm3 (0.84-5.20); LYMPHOCYTES PERCENT AUTO 14 % (21-46); MONOCYTES ABSOLUTE AUTO 1.43 K/mm3 (0.16-1.47); MONOCYTES PERCENT AUTO 11 % (4-13); Mean Corpuscular HGB 30.1 pg (26.0-34.0); Mean Corpuscular Volume 86 fL (80-100); Mean Platelet Volume 8.9 fL (9.1-12.4); NEUTROPHILS PERCENT AUTO 68 % (41-73); Platelet Count 454 K/mm3 (150-400); RDW Coefficient Variation 14.4 % (11.7-14.2); RDW Standard Deviation 44.6 fL (35.1-46.3); Red Blood Cell Count 4.72 M/mm3 (4.30-5.90); White Blood Cell Count 13.14 K/mm3 (4.00-11.30)
[2023-08-17 04:31] LABS: Alanine Aminotransfer (ALT/SGP 38 U/L (12-78); Albumin, Blood 2.3 g/dL (3.4-5.0); Albumin/Globulin Ratio 0.4 (0.8-1.8); Alk Phos 363 U/L (50-136); Anion Gap 4 mmol/L (6-16); Aspartate Aminotrans (AST/SGOT 57 U/L (12-37); Bilirubin, Total 0.6 mg/dL (0.1-1.0); Blood Urea Nitrogen 17 mg/dL (8-24); Bun/Creatinine Ratio 27.9 (12.0-20.0); CO2, Blood 31 mmol/L (21-32); Calcium, Blood 8.9 mg/dL (8.5-10.1); Chloride, Blood 101 mmol/L (98-108); Creatinine, Blood 0.61 mg/dL (0.60-1.20); Globulin, Blood 5.3 g/dL (2.2-4.0); Glomerular Filtration Rate 109 (60-); Glucose, Blood 141 mg/dL (70-99); Potassium, Blood 3.5 mmol/L (3.5-5.5); Sodium, Blood 136 mmol/L (136-145); Total Protein, Blood 7.6 g/dL (6.4-8.2)
[2023-08-17 05:13] LABS: Source, Urine Clean Catch
[2023-08-17 05:22] LABS: Ethanol (Alcohol), Blood, Med <3 mg/dL
[2023-08-17 05:23] LABS: Bilirubin, Urine Neg (Neg); Blood, Urine Neg (Neg); Glucose Qualitative, Urine Neg (Neg); Ketones, Urine Neg (Neg); Leukocyte Esterase, Urine Neg (Neg); Nitrite, Urine Neg (Neg); Protein, Urine 1+ (Neg); Specific Gravity, Urine 1.025 (1.003-1.022); Urobilinogen, Urine 3+ (Normal)
[2023-08-17 05:37] LABS: U Amphetamine Screen Not Detected; U Barbituate Screen Not Detected; U Benzodiazapine Screen Not Detected; U Buprenorphine Screen Not Detected; U Cannabinoids Screen DETECTED; U Cocaine Screen Not Detected; U Methadone Screen Not Detected; U Methamphetamine Screen Not Detected; U Opiates Screen Not Detected; U Oxycodone Screen Not Detected; U Phencyclidine Screen Not Detected
[2023-08-17 05:38] LABS: Appearance, Urine Clear (Clear); Color, Urine Yellow (P-Yellow)
[2023-08-17 11:05] VITALS: BP 142/94
--- NOTE | 2023-08-17 13:05 | NUR ---
Pt arrived to 332 via [email or web address] from ED, report obtained, pt able to stand and tx to bed, a/ox4, speaks very softly, follows commands well, states pain is ok at this time, pt is very unkept, homeless, lungs are clear, dim t/o, resp even and unlabored, no cough noted, hrr, no edema noted, ppp+2, cap refill <3sec, vs stable, afebrile, piv x2, sites are clear and patent, btx4, abd flat soft nontender, voids via urinal, skin c/w/d, appears emaciated, mapippa, weak, kavon, will be having a liver biposy tomorrow, will need to be npo for that. oriented to room layout and call system. call light in reach.
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
[2023-08-17 14:54] LABS: Alpha Feto Protein, Tumor Mkr 7.4 ng/mL (0.0-8.0); Cancer Antigen 19-9 63.4 U/mL (2.0-37.0)
[2023-08-17 16:54] VITALS: BP 152/98
--- NOTE | 2023-08-17 18:43 | NUR ---
pt happier after getting food to eat, he will be npo after midnight pending ct guided liver biopsy, no complaints of pain, this shift. no acute changes, call light in reach.
--- NOTE | 2023-08-17 19:00 | NUR ---
RECEIVED REPORT FROM ANNE MARIE RN. WILL PROVIDE CARE T/O SHIFT. CALL LT IN REACH.
[2023-08-17 19:35] VITALS: BP 145/74
--- NOTE | 2023-08-17 19:40 | NUR ---
PT'S IV SITES COVERED AND TAPED. PT WANTING TO SHOWER. NO ASSISTANCE NEEDED. INFORMED PT TO PULL CALL LT CORD IN BATHROOM IF NEEDED ASSISTANCE. PT VERBALIZED UNDERSTANDING.
--- NOTE | 2023-08-17 22:05 | NUR ---
PT RESTING QUIETLY. CALL LT IN REACH.
--- NOTE | 2023-08-18 00:24 | NUR ---
PT HARD TO UNDERSTAND AT TIMES. MUMBLES DURING CONVERSATION. IV ABX HUNG. SCD'S IN PLACE AT THIS TIME. NO NEEDS AT THIS TIME. CALL LT IN REACH.
--- NOTE | 2023-08-18 01:57 | NUR ---
SALINE LOCKED PT AFTER ABX INFUSION. NO OTHER NEEDS AT THIS TIME. CALL LT IN REACH.
[2023-08-18 02:10] VITALS: BP 153/96
--- NOTE | 2023-08-18 02:10 | NUR ---
PT STATES HE HASN'T HAD A BOWEL MOVEMENT FOR SEVERAL DAYS AND NEEDS TO HAVE ONE. PT HAD BEEN GIVEN COLACE AT BEDTIME. BROWN COW GIVEN TO PT. CALL LT IN REACH.
--- NOTE | 2023-08-18 04:16 | NUR ---
PT SITTING UP IN CHAIR. NO NEEDS AT THIS TIME. CALL LT IN REACH.
[2023-08-18 04:50] LABS: BASOPHILS ABSOLUTE AUTO 0.14 K/mm3 (0.00-0.23); BASOPHILS PERCENT AUTO 1 % (0-2); EOSINOPHILS ABSOLUTE AUTO 0.28 K/mm3 (0.00-0.68); EOSINOPHILS PERCENT AUTO 2 % (0-6); Hematocrit 36.9 % (37.0-53.0); Hemoglobin 13.1 g/dL (13.5-17.5); IMMATURE GRAN ABSOLUTE AUTO 0.61 K/mm3 (0.00-0.10); IMMATURE GRAN PERCENT AUTO 4 % (0-1); LYMPHOCYTES ABSOLUTE AUTO 1.64 K/mm3 (0.84-5.20); LYMPHOCYTES PERCENT AUTO 11 % (21-46); MONOCYTES ABSOLUTE AUTO 1.72 K/mm3 (0.16-1.47); MONOCYTES PERCENT AUTO 11 % (4-13); Mean Corpuscular HGB 29.9 pg (26.0-34.0); Mean Corpuscular HGB Conc 35.5 g/dL (31.5-36.5); Mean Corpuscular Volume 84 fL (80-100); Mean Platelet Volume 8.8 fL (9.1-12.4); NEUTROPHILS ABSOLUTE AUTO 10.64 K/mm3 (1.96-9.15); NEUTROPHILS PERCENT AUTO 71 % (41-73); Platelet Count 453 K/mm3 (150-400); RDW Coefficient Variation 14.5 % (11.7-14.2); RDW Standard Deviation 43.8 fL (35.1-46.3); Red Blood Cell Count 4.38 M/mm3 (4.30-5.90); White Blood Cell Count 15.03 K/mm3 (4.00-11.30)
--- NOTE | 2023-08-18 05:15 | NUR ---
SHIFT SUMMARY: A/O. TOOK A SHOWER AT THE BEGINNING OF SHIFT INDEPENDENTLY. ON RA. ABLE TO STATE NEEDS. HAS BEEN PLEASANT AND COOPERATIVE WITH CARE. TAKES MEDS WHOLE WITH WATER. DENIES SOB. NPO FOR A CT GUIDED LIVER BIOPSY TODAY. NO ACUTE CHANGES. WILL CONTINUE TO PROVIDE CARE UNTIL SHIFT REPORT.
[2023-08-18 05:17] LABS: International Normalized Ratio 1.13; Prothrombin Time Results 11.8 Sec (9.7-11.5)
[2023-08-18 05:36] LABS: Albumin, Blood 2.1 g/dL (3.4-5.0); Albumin/Globulin Ratio 0.4 (0.8-1.8); Bilirubin, Total 0.8 mg/dL (0.1-1.0); Bun/Creatinine Ratio 23.9 (12.0-20.0); Calcium, Blood 8.4 mg/dL (8.5-10.1); Creatinine, Blood 0.67 mg/dL (0.60-1.20); Globulin, Blood 5.3 g/dL (2.2-4.0); Potassium, Blood 4.3 mmol/L (3.5-5.5); Total Protein, Blood 7.4 g/dL (6.4-8.2)
[2023-08-18 07:29] VITALS: BP 154/97
[2023-08-18 08:15] VITALS: BP 148/90
--- NOTE | 2023-08-18 08:44 | NUR ---
Patient aggitated today due to uncertainty about his plan of care and the timing of a biopsy. I provide clothes (Sweatshirt and pants and a t-shirt) and prayer and latest info on what is known by the staff accountant. Patient voices appreciation.
--- NOTE | 2023-08-18 09:52 | NUR ---
NOTE: RECEIVED A CALL FROM TESSIE (SPIN TABLE OPERATOR) AT AROUND 0930. PER TESSIE CT GUIDED LIVER BIOPSY TEST WILL BE CANCELLED TODAY D/T STAFFING ISSUE AND NO PATHOLOGY AVAILABLE UNTIL MONDAY. NOTIFIED DR. SMITH REGARDING THIS ISSUE. RECEIVED ORDER TO RESUME PO INTAKE NOW.
[2023-08-18 14:47] VITALS: BP 165/98
--- NOTE | 2023-08-18 16:51 | NUR ---
SHIFT SUMMARY: PATIENT A/OX4, ANSWER TO QUESTIONS APPROPRIATELY AND ABLE TO MAKE NEEDS KNOWN. PATIENT PLEASANT AND COOPERATIVE c CARE PROVIDED. PATIENT DENIES CP/PRESSURE, SOB, N/V AND DIZZINESS. PATIENT REPORTS NO BM FOR 5 DAYS. PATIENT MEDICATED c SCHEDULED BOWEL REGIMEN, PRN SUPPOSITORY AND MIRALAX c NO RESULT. PATIENT REPORTS PAIN TO LOWER BACK, MEDICATED c PRN PAIN MEDS c GOOD EFFECT. PATIENT IS EATING AND DRINKING WELL, CONTINENCE OF BLADDER AND AMBULATES TO BATHROOM c SBA/IND T/O SHIFT. PATIENT RECEIVED IV ABX AND SCHEDULED MEDS PER EMAR. VITAL SIGNS REVIEWED. PIV TO R/L FOREARM SALINE LOCKED. CALL LIGHT IN REACH.
[2023-08-18 19:06] VITALS: BP 146/92
[2023-08-19 04:38] VITALS: BP 146/106
[2023-08-19 04:49] LABS: BASOPHILS ABSOLUTE AUTO 0.17 K/mm3 (0.00-0.23); BASOPHILS PERCENT AUTO 1 % (0-2); EOSINOPHILS ABSOLUTE AUTO 0.28 K/mm3 (0.00-0.68); EOSINOPHILS PERCENT AUTO 2 % (0-6); Hematocrit 39.7 % (37.0-53.0); Hemoglobin 13.9 g/dL (13.5-17.5); IMMATURE GRAN ABSOLUTE AUTO 0.75 K/mm3 (0.00-0.10); IMMATURE GRAN PERCENT AUTO 4 % (0-1); LYMPHOCYTES ABSOLUTE AUTO 1.98 K/mm3 (0.84-5.20); LYMPHOCYTES PERCENT AUTO 11 % (21-46); MONOCYTES ABSOLUTE AUTO 2.03 K/mm3 (0.16-1.47); MONOCYTES PERCENT AUTO 11 % (4-13); Mean Corpuscular HGB 29.6 pg (26.0-34.0); Mean Corpuscular Volume 85 fL (80-100); Mean Platelet Volume 8.7 fL (9.1-12.4); NEUTROPHILS ABSOLUTE AUTO 13.15 K/mm3 (1.96-9.15); NEUTROPHILS PERCENT AUTO 72 % (41-73); Platelet Count 556 K/mm3 (150-400); RDW Coefficient Variation 14.6 % (11.7-14.2); RDW Standard Deviation 43.8 fL (35.1-46.3); Red Blood Cell Count 4.69 M/mm3 (4.30-5.90); White Blood Cell Count 18.36 K/mm3 (4.00-11.30)
--- NOTE | 2023-08-19 05:04 | NUR ---
SHIFT SUMMARY SHARA WAS ALERT AND FULLY ORIENTED AT THE START OF THE SHIFT. PT IS COOPERATIVE WITH CARE BUT FRUSTRATED AT HAVING TO WAIT UNTIL MONDAY TO GET HIS LIVER BIOPSY DONE. PT COMPLAINS OF CONSTIPATION LASTING OVER 5 DAYS, HOWEVER THE PATIENT HAS A CHARTED BM FOR YESTERDAY, AND MANAGED TO PASS A SMALL HARD STOOL TONIGHT WELL. NO ACUTE EVENTS TONIGHT. PT IS RESTLESS, BUT DIRECTABLE AND HAS NOT BEEN IMPULSIVE. HE IS CURRENTLY RESTING IN BED AT A LOW POSITION WITH THE CALL LIGHTS IN REACH.
[2023-08-19 05:14] LABS: Albumin, Blood 2.3 g/dL (3.4-5.0); Albumin/Globulin Ratio 0.4 (0.8-1.8); Bun/Creatinine Ratio 22.7 (12.0-20.0); Calcium, Blood 8.9 mg/dL (8.5-10.1); Creatinine, Blood 0.62 mg/dL (0.60-1.20); Globulin, Blood 5.4 g/dL (2.2-4.0); Potassium, Blood 4.3 mmol/L (3.5-5.5); Total Protein, Blood 7.7 g/dL (6.4-8.2)
[2023-08-19 07:39] VITALS: BP 141/99
--- NOTE | 2023-08-19 16:19 | NUR ---
SHIFT SUMMARY: PATIENT CONTINUES TO REPORTS OF BEING "CONSTIPATED" AND FIXATED TO HAVE BM THIS SHIFT. PER PATIENT "I HAD COUPLE SMALL HARD BROWN BM LAST NIGHT, BUT IT'S NOT ENOUGH." PATIENT ABDOMEN MILD DISTENDED, HYPOACTIVE BT AND SOFT TO MILD PALPATION . PATIENT DENIES TENDERNESS OR PAIN TO ALL QUADRANTS OF HIS ABDOMEN. PATIENT MEDICATED FOR CONSTIPATION c SCHEDULED AND PRN BOWEL REGIMEN c NO RESULT THIS SHIFT. PATIENT HAD SHOWER AND LINEN CHANGED THIS SHIFT. PATIENT REPORTS PAIN 6/10 TO LOWER BACK, MEDICATED c PRN PAIN MEDS c GOOD EFFECT. PATIENT TOLERATING PO INTAKE WELL, CONTINENCE OF BLADDER AND USES URINAL IN BED INDEPENDENTLY. PATIENT RECEIVED IV ABX AND SCHEDULED MEDS PER EMAR. VITAL SIGNS REVIEWED. PIV TO R/L FOREARM SALINE LOCKED. CALL LIGHT IN REACH.
[2023-08-19 16:58] VITALS: BP 125/98
[2023-08-19 20:08] VITALS: BP 135/95
--- NOTE | 2023-08-20 04:22 | NUR ---
SHIFT SUMMARY 63 YR M ADMITTED ON 08/17/23 FOR A LIVER MASS. FULL CODE. NO ACUTE CHANGES THIS SHIFT. PT C/O HIS BED BEING TOO SOFT SO AT ONE POINT HE MADE HIMSELF A BED ON THE FLOOR W/ A HEATING PAD. HOWEVER, IT WAS NOT LONG BEFORE HE WAS BACK IN BED. IV IN LEFT ARM BECAME FILTRATED AND WAS REMOVED. IV IN RIGHT ARM IS PATENT AND FLUSHES. PT IS VERY PLEASANT AND COOPERATIVE W/ CARE. HE STATES HE HAS STILL NOT HAD A BM AND BOWEL REIGMEN MEDS WERE GIVEN.
[2023-08-20 05:01] VITALS: BP 121/89
[2023-08-20 07:50] VITALS: BP 118/89
[2023-08-20 08:43] LABS: BASOPHILS ABSOLUTE AUTO 0.15 K/mm3 (0.00-0.23); BASOPHILS PERCENT AUTO 1 % (0-2); EOSINOPHILS ABSOLUTE AUTO 0.23 K/mm3 (0.00-0.68); EOSINOPHILS PERCENT AUTO 1 % (0-6); Hematocrit 40.7 % (37.0-53.0); Hemoglobin 14.2 g/dL (13.5-17.5); IMMATURE GRAN ABSOLUTE AUTO 0.82 K/mm3 (0.00-0.10); IMMATURE GRAN PERCENT AUTO 5 % (0-1); LYMPHOCYTES ABSOLUTE AUTO 1.69 K/mm3 (0.84-5.20); LYMPHOCYTES PERCENT AUTO 10 % (21-46); MONOCYTES ABSOLUTE AUTO 2.07 K/mm3 (0.16-1.47); MONOCYTES PERCENT AUTO 12 % (4-13); Mean Corpuscular HGB 29.6 pg (26.0-34.0); Mean Corpuscular HGB Conc 34.9 g/dL (31.5-36.5); Mean Corpuscular Volume 85 fL (80-100); Mean Platelet Volume 8.7 fL (9.1-12.4); NEUTROPHILS ABSOLUTE AUTO 12.61 K/mm3 (1.96-9.15); NEUTROPHILS PERCENT AUTO 72 % (41-73); Platelet Count 507 K/mm3 (150-400); RDW Coefficient Variation 14.6 % (11.7-14.2); RDW Standard Deviation 44.5 fL (35.1-46.3); White Blood Cell Count 17.57 K/mm3 (4.00-11.30)
--- NOTE | 2023-08-20 16:31 | NUR ---
SHIFT SUMMARY: NO NEW ACUTE CHANGES IN PATIENT CONDITION THIS SHIFT. PATIENT A/OX4. CALM, PLEASANT AND COOPERATIVE c CARE PROVIDED. PATIENT DENIES CP/PRESSURE, SOB, N/V AND DIZZINESS. PATIENT HAD 2 MEDIUM HARD BROWN BM THIS SHIFT. PATIENT HAD SHOWER AND LINEN CHANGED TODAY. PATIENT AMBULATES TO BATHROOM AND BACK IN BED c SBA/INDEPENDENT T/O SHIFT. PATIENT IS EATING AND DRINKING WELL. PATIENT REPORTS OF BEING ANXIOUS TO GET HIS CT GUIDED LIVER BIOPSY DONE TOMORROW, MONDAY. PER PATIENT "I HAVE BEEN WAITING THIS TO GET IT DONE AND THEY KEEP CANCELLING IT, IF THEY ARE NOT DOING IT TOMORROW. I NEED TO GO TO [facility] WHO CAN GET THIS PROCEDURE DONE." PATIENT RECEIVED SCHEDULED MEDS PER EMAR. VITAL SIGNS REVIEWED. CALL LIGHT IN REACH.
[2023-08-20 20:30] VITALS: BP 130/81
[2023-08-21 02:59] VITALS: BP 120/79
--- NOTE | 2023-08-21 05:28 | NUR ---
SHIFT SUMMARY 63 YR M ADMITTED ON 08/17/23 FOR LIVER MASS. FULL CODE. NO ACUTE CHANGES THIS SHIFT. PT IS PLEASANT AND COOPERATIVE WITH CARE. HE HAS SLEPT FOR MOST OF THIS SHIFT. PLAN IS FOR US GUIDED BIOPSY TODAY, BUT PER YESTERDAY DAY NURSE THERE MAY BE A CHANCE IT IS CANCELLED AGAIN.
[2023-08-21 05:29] LABS: BASOPHILS ABSOLUTE AUTO 0.11 K/mm3 (0.00-0.23); BASOPHILS PERCENT AUTO 1 % (0-2); EOSINOPHILS ABSOLUTE AUTO 0.21 K/mm3 (0.00-0.68); EOSINOPHILS PERCENT AUTO 1 % (0-6); Hematocrit 38.7 % (37.0-53.0); Hemoglobin 13.5 g/dL (13.5-17.5); IMMATURE GRAN ABSOLUTE AUTO 0.68 K/mm3 (0.00-0.10); IMMATURE GRAN PERCENT AUTO 4 % (0-1); LYMPHOCYTES ABSOLUTE AUTO 2.04 K/mm3 (0.84-5.20); LYMPHOCYTES PERCENT AUTO 12 % (21-46); MONOCYTES ABSOLUTE AUTO 1.81 K/mm3 (0.16-1.47); MONOCYTES PERCENT AUTO 11 % (4-13); Mean Corpuscular HGB 29.9 pg (26.0-34.0); Mean Corpuscular HGB Conc 34.9 g/dL (31.5-36.5); Mean Corpuscular Volume 86 fL (80-100); Mean Platelet Volume 8.8 fL (9.1-12.4); NEUTROPHILS ABSOLUTE AUTO 11.58 K/mm3 (1.96-9.15); NEUTROPHILS PERCENT AUTO 71 % (41-73); Platelet Count 443 K/mm3 (150-400); RDW Coefficient Variation 14.6 % (11.7-14.2); RDW Standard Deviation 45.1 fL (35.1-46.3); Red Blood Cell Count 4.51 M/mm3 (4.30-5.90); White Blood Cell Count 16.43 K/mm3 (4.00-11.30)
[2023-08-21 05:55] LABS: Albumin/Globulin Ratio 0.4 (0.8-1.8); Bilirubin, Total 0.8 mg/dL (0.1-1.0); Bun/Creatinine Ratio 21.5 (12.0-20.0); Calcium, Blood 8.8 mg/dL (8.5-10.1); Creatinine, Blood 0.79 mg/dL (0.60-1.20); Globulin, Blood 5.1 g/dL (2.2-4.0); Potassium, Blood 4.1 mmol/L (3.5-5.5); Total Protein, Blood 7.1 g/dL (6.4-8.2)
[2023-08-21 07:25] VITALS: BP 121/60
[2023-08-21 16:48] VITALS: BP 126/72
[2023-08-21 19:09] VITALS: BP 124/66
--- NOTE | 2023-08-21 20:08 | NUR ---
SUMMARY- PT A/OX4. INDEPENDANT IN ROOM, GRABS FURNATURE, BUT STEADY OVERALL. PT IS HAVING SEVERE PAIN WHEN WALKING, DESCRIBES SCIATICA TYPE PAIN IN BILAT HIPS. HAS BEEN LIVING WITH THIS UNTREATED PAIN FOR YEARS. CALLED DR LUONG AFTER MRI, ASKED IF PT COULD HAVE SOMETHING FOR PAIN. OXY ORDERED PRN. MRI WAS ONLY PARTIALLY COMPLETED ON THE CONTRAST PROTION PT UNABLE TO LAY FLAT WITH SO MUCH PAIN. BIOPSY WAS DISCOURAGED BY RADIOLGY RELATED TO PT'S HISTORY OF HEP C. MRI TRIED FIRST. PT TOLERATING FOOD AND FLUIDS. WAS CONSTIPATED BUT BOWELS STARTED TO MOVE TODAY AND TURNED INTO DIARRHEA. NOTIFIED NOC FACUNDO LEE AWARE TO HOLD FURTHER LAX.
[2023-08-22 03:39] VITALS: BP 111/62
--- NOTE | 2023-08-22 06:52 | NUR ---
Shift Summary Pt somnolent this evening and slept well t/o the night. He was given 5 mg PRN oxycodone twice per EMAR. When awake he would say his hip pain was 6-7/10. Pt decline bowel meds as he said he had a BM recently. Pt voided in the urinal t/o the night and did not get out of bed. No acute events.
[2023-08-22 07:29] VITALS: BP 116/78
--- NOTE | 2023-08-22 08:53 | NUR ---
CALL FROM DR LUONG, MRI CANCELLED AND CHANGED TO CT GUIDED LIVER BIOPSY TODAY, VAILUM IV ORDERED PRIOR TO PROCEDURE, NOTIFIED OF PATIENT SCIATIC PAIN AND MUSCLE PAIN, SHE ORDERED VALILUM 2.5MG TAB 1 PO Q8H PRN MUSCLE SPASM.
--- NOTE | 2023-08-22 11:29 | NUR ---
Spoke with Dr Myrick prior to visiting with Pt. Pt may benefit from goals of care conversation. Pt resting in bed and is A&O. Pt appears significantly cachectic, weak, and frail. Pt reports pain due to sciatic. Engaged in therapeutic conversation regarding goals of care. Pt reports living at [facility], not , no children, and has a brother. Reviewed plan of care with Pt. He reports no wanting chemo therapy or radiation but if immunotherapy is recommended he would be agreeable. Discussed code status wishes and gentle education on risks and implications to CPR/Intubation. Pt wishes to be a Full Code. Continued therapeutic listening as Pt reports his mother, father, and 2 brothers from cancer. Continued therapeutic visit. Palliative Care will remain available
--- NOTE | 2023-08-22 14:04 | NUR ---
Spiritual care visit conducted. Patient is lying in bed and alert. He talks at length and is tearful at times. He voices his deepest concern and that is to not be a burden to anyone. He continues to be confused about hospice even after several attempts to help clarifies, thinking that it is a "place that leaves you with bed sores." We talk about his relationship with his brother in whom he could go live. Mr. 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 We also discuss the afterlife and the judging scales of good and bad in his life and how he would be found coming up short. He shares about his poor life choices with tears and about the good that he has done. He shares his spiritual beliefs as we explore his values and theology for avenues of inner hope and raymond. He is clear that he is not in favor of surgery or chemotharepy. I suggest some positive paths forward, hear confession, and provide gentle residence counselor, theological insights and prayer. Patient responded well and showed signs of greater hope and of being forgiven. I will continue to remain available to patient and family.
[2023-08-22 15:27] VITALS: BP 125/70
--- NOTE | 2023-08-22 19:32 | NUR ---
SHIFT SUMMARY PATIENT WITH SCIATIC/HIP PAIN THROUGHOUT SHIFT, VERBALIZES RELIEF WITH OXYCODONE AND VALIUM. PATIENT SLEEPING THROUGH MOST OF SHIFT BUT EASILY AROUSABLE, HE WAS UP TO SHOWER WITH WALKER AND SBA. NO ACUTE EVENTS DURING SHIFT, BED IN LOW POSITION. PATIENT CALLS APPROPRIATELY
[2023-08-22 19:43] VITALS: BP 114/64
[2023-08-23 03:26] VITALS: BP 143/69
--- NOTE | 2023-08-23 06:42 | NUR ---
Shift Summary Pt had some pain on his liver biopsy site early in the shift, medicated per emar. Pt was able to sleep well t/o most of the night. Pt refusing bowel medications as he states he had diahrrea 2 days ago. Pt is eager to go home and was asking about when he could go, I advised to speak to the doctor today.
[2023-08-23 07:21] VITALS: BP 126/73
--- NOTE | 2023-08-23 12:06 | NUR ---
Spoke with Dr Myrick and discussed case. She had a conversation with Pt and Pt's brother. Ultimately Pt decided he did not want to pursue treatment for his cancer and would like hospice services. Pt's brother plans to have Pt live with him. Code status discussed as well. Pt reports wishes are DNR. Pt and brother may benefit from further conversation regarding hospice philosophy and completing POLST. Pt standing at the window in his room upon arrival. Pt's brother has left. Engaged in therapeutic conversation regarding hospice philosophy. Pt reports understanding and has no questions. Pt reports no preference for hospice agencies. Pt agreeable to complete POLST. Assisted Pt with completing POLST. Attempted to call Pt's brother Alphonse. Left message on voicemail with request for a return phone call. Placed DNR order, ordered long acting pain medication of MS Contin 15mg PO every 12 hours per V/O from Dr Myrick. Palliative Care will remain available
[2023-08-23 15:29] VITALS: BP 127/75
--- NOTE | 2023-08-23 15:34 | NUR ---
Spiritual care visit conducted. Long visit with patient today, over one hour. I hear confession, provide reading glasses and contact care management for help with patient's SSI. I provide therapeutic listening and prayer. Patient shared personal stories, regrets, fears and hopes. I will continue to remain available to patient and family.
--- NOTE | 2023-08-23 18:59 | NUR ---
SHIFT SUMMARY PATIENT UP TO BATHROOM FOR BM, USING URINAL IN BED. MEDICATED FOR PAIN PER EMAR. NO ACUTE EVENTS DURING SHIFT. BED IN LOW POSITION, CALL LIGHT IN REACH. PATIENT MAKES NEEDS KNOWN.
[2023-08-23 19:30] VITALS: BP 123/64
[2023-08-24 02:17] VITALS: BP 137/85
--- NOTE | 2023-08-24 07:00 | NUR ---
SHIFT SUMMARY PT A&OX4, VSS, IV INFUSING IN R WRIST. LIVER BIOPSY COMPLETED, AWAITING RESULTS. PLANS FOR PT TO BE DISCHARGED TO BROTHERS HOME UPON DISCHARGE. NO ACUTE CHANGES THIS SHIFT. CALL LIGHT W/IN REACH.
[2023-08-24 15:32] VITALS: BP 127/67
--- NOTE | 2023-08-24 17:29 | NUR ---
PT IS A/OX3, PLEASANT AND COOPERATIVE. THE PT IS UP IND IN HIS ROOM. PT IS DUSKY IN COLOR. PT WAS MEDICATED FOR PAIN T/O THE DAY. PT SEEMED TO HAVE A HARD TIME GETTING COMFORTABLE. HEATING PAD WAS PROVEDED PER THE PTS REGUEST. FOR PAIN BETWEEN HIS SHOULDERS AND BACK OF THE NECK. PT APPEARS TO BE BREATHING EASILY WITHOUT OXYGEN. CALL LIGHT IN REACH
[2023-08-24 19:07] VITALS: BP 135/76
[2023-08-25 03:21] VITALS: BP 110/67
[2023-08-25 07:47] VITALS: BP 129/83
[2023-08-25 15:16] VITALS: BP 129/83
--- NOTE | 2023-08-25 19:09 | NUR ---
PT IS A/OX4, PLEASANT AND COOPERATIVE. THE PT IS UP IND IN HIS ROOM THE PT CONTINUES TO REPORT POOR PAIN CONTROL. ICY HOT PATCHES WERE ORDERED AND APPLIED TO VARIOUS AREAS PER THE PT THAT HELPED WITH THE PAIN THE PT WAS GIVEN VALIUM THAT HE REPORTED ALSO HELPED WITH HIS RESTLESS LEGS. PT WAS MEDICATED FOR PAIN PER EMAR. THE PT WAS ASSISTED WITH SHOWERING TODAY. CALL LIGHT IN REACH. BED IN THE LOW POSITION.
[2023-08-25 19:24] VITALS: BP 127/77
--- NOTE | 2023-08-26 04:58 | NUR ---
SHIFT SUMMARY PATIENT A/Ox4, APPEARS WITHDRAWN, IRRITABLE BUT COOPERATIVE. C/O ON GOING PAIN, MANAGED PER EMAR WITH ROUTINE AND PRN ANALGESIC MEDICATIONS. NO ACUTE CHANGES NOTED OVERNIGHT. BED LOCKED, CALL LIGHT WITHIN REACH.
[2023-08-26 05:07] VITALS: BP 131/86
[2023-08-26 07:21] VITALS: BP 122/83
[2023-08-26] MEDS ORDERED: MS CONTIN15 MG PO (11:25)
[2023-08-26] MEDS ORDERED: Acetaminophen650 M1 PO (11:26)
[2023-08-26] MEDS ORDERED: OXYC5 PO (11:27)
--- NOTE | 2023-08-26 13:25 | NUR ---
DISCHARGE PT MEDICATED FOR PAIN PRIOR TO DC. PT AND HIS BROTHER EDUCATED ON NEW MEDICATIONS AND FOLLOW UP INSTRUCTIONS WITH HOSPICE. BOTH DENIED FURTHER NEED FOR INSTRUCTION AT THIS TIME. PT TRANSFERED TO WHEELCHAIR AND WHEELED OUT BY AIDE. HARD SCRIPTS AND POLST SENT WITH THE PATIENT.
== END 2023-08-26 13:17 | disposition home or self-care (01) | DRG 871 ==
LOC: ER 03:30 → MEDS 09:34
PROVIDERS: Emergency Medicine; Internal Medicine; Internal Medicine Hematology & Oncology; ADMIT Family Medicine
PROC: 3E03329 Introduction of Other Anti-infective into Peripheral Vein, Percutaneous Approach (ICD-10-PCS; 2023-08-17)
PROC: 0FB03ZX Excision of Liver, Percutaneous Approach, Diagnostic (ICD-10-PCS; principal; 2023-08-22)
DX: A41.9 Sepsis, unspecified organism (principal); E43 Unspecified severe protein-calorie malnutrition; C22.8 Malignant neoplasm of liver, primary, unspecified as to type; C78.02 Secondary malignant neoplasm of left lung; Z59.00 Homelessness unspecified; C78.01 Secondary malignant neoplasm of right lung; C79.51 Secondary malignant neoplasm of bone; Z66 Do not resuscitate; Z51.5 Encounter for palliative care; B18.2 Chronic viral hepatitis C; F17.210 Nicotine dependence, cigarettes, uncomplicated; K59.09 Other constipation; F60.89 Other specific personality disorders; F12.90 Cannabis use, unspecified, uncomplicated; D64.81 Anemia due to antineoplastic chemotherapy; I45.10 Unspecified right bundle-branch block; Z89.029 Acquired absence of unspecified finger(s); Z71.6 Tobacco abuse counseling; D75.838 Other thrombocytosis; Z68.20 Body mass index [BMI] 20.0-20.9, adult
CPT/HCPCS: 36415; 47000; 71046; 71275; 74183; 77012; 80053; 82105; 82378; 83605; 83690; 84484; 85025; 85379; 85610; 86141; 86301; 87040; 88307; 88341; 88342; 93005; 93010; 96365; 96366; 96368; 96375; 99285-25; A9270; A9581; J0696; J1885; J2543; J3360; J7050; Q9967